=== PATIENT | male | born 1985 | race Caucasian/White ===

== ENCOUNTER → 2022-01-16 11:27 | Outpatient (CLI) | payer OTHER, SELFPAY ==
--- NOTE | ~2022-01-16 | MR_ITS ---
EXAMINATION: MR lumbar spine wo con DATE: 01/16/2022 12:09 INDICATION: lbp enzo buttock pain xyrs, no trauma, no ca . TECHNIQUE: Magnetic resonance imaging (MRI) of the lumbar spine was performed without intravenous con trast. Sequences included sagittal T2-weighted FSE, sagittal T2-weighted FS FSE, sagittal T1-weighted FSE, and axial T2-weighted FSE. COMPARISON: None FINDINGS: The last fully formed and hydrated disc is designated L5-S1. The marrow signal is benign an d homogenous. Conus terminates at L1-2. Disc height loss and dehydration at L4-5. The following disc levels are specifically discussed: T12-L1: Mild diffuse bulge with a 2 mm right paracentral protrusion. There is mild facet joint osteoa rthritis. There is no neural foraminal stenosis. There is no central canal stenosis. L1-L2: Mild diffuse bulge with a 3 mm right subarticular protrusion. There is moderate facet joint os teoarthritis. There is no neural foraminal stenosis. There is no central canal stenosis. L2-L3: The disc does not extend beyond the endplate margin. There is moderate facet joint osteoarthri tis. There is no neural foraminal stenosis. There is no central canal stenosis. L3-L4: The disc does not extend beyond the endplate margin. There is moderate facet joint osteoarthri tis. There is no neural foraminal stenosis. There is no central canal stenosis. L4-L5: Moderate diffuse bulge with a 5 mm left subarticular extrusion. There is moderate facet joint osteoarthritis. There is mild left inferior neural foraminal stenosis. There is mild central canal st enosis. L5-S1: Mild diffuse bulge. There is moderate facet joint osteoarthritis. There is no neural foraminal stenosis. There is no central canal stenosis. IMPRESSION: 1. Mild central canal stenosis and left inferior neural foraminal narrowing at L4-5, caused by modera te degenerative disc disease and a 5 mm left subarticular extrusion. 2. Small 2-3 mm disc protrusions at T12-L1 and L1-L2, without significant central canal or neural for aminal narrowing. 3. Moderate multilevel facet arthropathy. Reviewed, dictated and finalized at location K. IMPRESSION: 1. Mild central canal stenosis and left inferior neural foraminal narrowing at L4-5, caused by moderate degenerative disc disease and a 5 mm left subarticular extrusion. 2. Small 2-3 mm disc protrusions at T12-L1 and L1-L2, without significant centr al canal or neural foraminal narrowing. 3. Moderate multilevel facet arthropathy.
== END ==
PROVIDERS: PCP Family Medicine Sports Medicine
DX: M51.25 Other intervertebral disc displacement, thoracolumbar region (principal); M51.26 Other intervertebral disc displacement, lumbar region
CPT/HCPCS: 72148

== ENCOUNTER 2023-09-29 10:40 | Outpatient (CLI) | payer OTHER, SELFPAY ==
--- NOTE | ~2023-09-29 | MR_ITS ---
MRI of the lumbar spine Clinical History: Back pain Technique: Axial T2-weighted images, and sagittal T1-weighted, T2-weighted, and T2 fat-sat images wer e acquired. Findings: There is no fracture or subluxation of the lumbar spine. Vertebral bodies maintain normal h eight and line. No suspicious bone marrow signal abnormality seen. At L1-L2, there is mild loss of disc height with minimal disc bulge and mild facet arthropathy. No ce ntral canal stenosis or neural foraminal narrowing. At L2-L3 and L3-L4, there is no disc bulge or herniation. There is moderate facet arthropathy results . No spinal canal stenosis or neural foraminal narrowing at these levels. At L4-L5, there is mild diffuse disc bulge with mild facet arthropathy. No central canal stenosis. Th ere is probable minimal left neural foraminal narrowing. Right neural foramen preserved. At L5-S1, there is no disc bulge or herniation. There is minimal facet joint degenerative change. No spinal canal stenosis. There is minimal left neural foraminal narrowing. Right neural foramen preserv ed. Paravertebral soft tissues are unremarkable. Impression: Minimal degenerative spondylosis, as above. Reviewed, dictated and finalized at location . Impression: Minimal degenerative spondylosis, as above.
== END 2023-09-29 10:41 ==
PROVIDERS: PCP Family Medicine Sports Medicine; Visit Provider Family Medicine Sports Medicine
DX: M54.50 Low back pain, unspecified (principal); G89.29 Other chronic pain
CPT/HCPCS: 72148

== ENCOUNTER 2025-03-09 14:48 | Emergency (ER) | payer OTHER, SELFPAY ==
--- NOTE | 2025-03-09 14:51 | ED.BACK ---
HPI - Back Pain/Injury General Chief Complaint: Back Pain/Injury Stated Complaint: L sided back pain Time Seen by Provider: 03/09/25 14:49 Source: patient Mode of arrival: ambulatory Limitations: no limitations History of Present Illness HPI Narrative: Edin is a 39-year-old male patient presenting to the clinic today with complaints of left-sided flank pain since last night. 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 States he grabbed at their mattress-that was quite heavy and through it onto a cart. Did not feel any pain at this time but started to feel pain over the left flank area a few hours later. Took 1200 mg of ibuprofen and applied ice to his back this morning. States his pain is currently a 5/10 with movement and a 2/10 at rest. Pain is piching type pain with movement. Denies any saddle anesthesia or loss of bowel or bladder. History kidney stones in the past. No fevers, chills, body aches. Denies any blood in his urine. Related Data Home Medications ?Medication ?Instructions ?Recorded ?Confirmed ?Last Taken ?Type losartan 50 mg tablet mg 03/09/25 Unknown History Allergies Allergy/AdvReac Type Severity Reaction Status Date / Time No Known Allergies Allergy Verified 03/09/25 14:58 Review of Systems Review of Systems: Pertinent positives per HPI. Patient denies any fever, chills, rash, headache, visual changes, dizziness, cough, runny nose, sore throat, shortness of breath, chest pain, palpitations, nausea, vomiting, diarrhea, constipation, abdominal pain, or any urinary issues. PMFSH Comments At the time of my signature, I reviewed and agree with the nursing past medical, surgical, social, and family history. There is no relevant family history pertinent to the patient complaint. Exam Narrative: General: Well-developed, well nourished, in no apparent distress Head: Normocephalic, atraumatic. Cardio: Regular rate and rhythm, s1 and s2 normal, no murmur appreciated. Resp: Clear to auscultation bilaterally, no rhonchi, rales, wheezing or rubs. Musculoskeletal: No deformity, tender to palpation over the left flank, pinching pain worse with movement-twisting and bending, grossly normal range of motion, muscle strength strong and equal in BLE. SLT positive had approximately 30?, patellar reflexes 2/4 bilaterally, negative foot drop, normal gait and station Course Course Emergency Course: Portions of this record may have been created with voice recognition software. Level of Care: Express Care Visit Vital Signs Vital signs: Vital Signs Temperature 36.2 C L 03/09/25 14:57 Pulse Rate 69 03/09/25 14:57 Respiratory Rate 18 03/09/25 14:57 Blood Pressure 135/74 03/09/25 14:57 Pulse Oximetry 99 03/09/25 14:57 Oxygen Delivery Room Air 03/09/25 14:57 Temperature 36.2 C L 03/09/25 14:57 Pulse Rate 69 03/09/25 14:57 Respiratory Rate 18 03/09/25 14:57 Blood Pressure 135/74 03/09/25 14:57 Pulse Oximetry 99 03/09/25 14:57 Oxygen Delivery Room Air 03/09/25 14:57 Vital signs reviewed MDM - Back Pain/Injury MDM Narrative Medical decision making narrative: At the time of visit patient is resting comfortably on the exam table. Patient appears to be nontoxic. Complaints of left-sided flank pain since last night. 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 States he grabbed at their mattress-that was quite heavy and through it onto a cart. Did not feel any pain at this time but started to feel pain over the left flank area a few hours later. Took 1200 mg of ibuprofen and applied ice to his back this morning. States his pain is currently a 5/10 with movement and a 2/10 at rest. Pain is piching type pain with movement. Denies any saddle anesthesia or loss of bowel or bladder. History kidney stones in the past. No fevers, chills, body aches. Denies any blood in his urine. On exam tender to palpation over the left flank, pinching pain worse with movement-twisting and bending, grossly normal range of motion, muscle strength strong and equal in BLE. SLT positive had approximately 30?, patellar reflexes 2/4 bilaterally, negative foot drop, normal gait and station Urinalysis dip ordered. Labs: UA dip performed and was negative for any sign of infection or blood. Plan: I suspect patient has abdominal wall muscular strain/left acute flank pain. Prescription for naproxen and Flexeril was sent to the pharmacy. Sedation precautions were reviewed. Work note was given. Supportive measures were discussed with the patient and they voiced understanding discharge instructions and agrees to treatment plan. Return precautions reviewed Differential Diagnosis Differential diagnosis: Likely lumbar radiculopathy, sciatica, strain of lumbar region, renal colic, pyelonephritis, thoracic back pain, AAA and discitis Lab Data Labs: Lab Results 03/09/25 Range/Units 15:25 POC Urine Color Yellow POC Urine Clarity Clear POC Urine pH 6.0 POC Ur Specif [place] 1.030 POC Urine Protein Negative (Negative) POC Ur Glucose (UA) Negative (Negative) POC Urine Ketones Negative (Negative) POC Urine Blood Negative (Negative) POC Urine Nitrite Negative (Negative) POC Urine Bilirubin Negative (Negative) POC Urine Urobilinogen 0.2 POC U Leukocyte Esteras Negative (Negative) Discharge Plan Discharge Clinical Impression: Muscular abdominal pain in left flank Patient Disposition: Home Condition: Stable Instructions: Antibiotic Form, Flank Pain (ED) Additional Instructions: Urinalysis is negative for any sign of blood or infection. Take any prescription medication only as prescribed-naproxen and cyclobenzaprine Be mindful of sedation precautions given to you if taking a muscle relaxer. May use heat or ice to the affected area Consider massage or chiropractor adjustment if this was discussed with provider May use blue emu, lidocaine patches, or asper cream to affected area- do not apply heat or ice directly over cream- can cause burn. Complete appropriate back stretching exercises. Follow up with your PCP in 3-5 days if symptom persist. Patient Language: Belarusian Prescriptions: New naproxen 500 mg tablet 500 mg PO BID PRN (Reason: pain) 7 Days Qty: 14 0RF cyclobenzaprine 10 mg tablet 10 mg PO Q8H PRN (Reason: muscle spasm) 7 Days Qty: 21 0RF No Action losartan 50 mg tablet Follow-up/Referrals: UNKNOWN,DOCTOR [Primary Care Provider] Stand Alone Forms: Work/School Release IP Time of Disposition: 15:27 Quality NIHSS Nursing Documentation ED NIHSS nursing documentation: reviewed/agree
--- OUTSIDE RECORDS SUMMARY | 2025-03-09 14:51 | XMS_ITS | Encounter Summary ---
Author Organization [facility] Address [address] [place] [id number] Care Team Providers Care Rn Diabetes Educator Name Role Phone Derick Peña MD Primary Care Provider Encounter Details Date Type Department Care Team (Latest Contact Info) Description 04/05/[address] [facility] [address] [place], [place] [phone] Derick Peña MD [address] [address] FMLA Paperwork and Restrictions Social History Tobacco Use Types Packs/Day Years Used Date Smoking Tobacco: Never Passive Smoke Exposure: Current Smokeless Tobacco: Never Alcohol Use Standard Drinks/Week Comments Not Currently 0 (1 standard drink = 0.6 oz pur e alcohol) Rarely AUDIT-C Answer Date Recorded Frequency of Alcohol Consumption Never 07/20/2018 Average Number of Drinks Not on file 019 Frequency of Binge Drinking Not on file 06/28 PHQ-2 Answer Date Recorded Patient Health Questionnaire-2 Score 0 03/21/2023 Sex and Gender Information Value Date Recorded Sex Assigned at Male 07/24/2024 5:48 PM ELECTRIC STOP INSTALLER Legal Sex Male 5:17 PM CDT Gender Identity Male 08/02/2018 4:09 PM ELECTRIC STOP INSTALLER Sexual Orientation Straight 08/02/2018 4: 09 PM ELECTRIC STOP INSTALLER documented as of this encounter Plan of Treatment Not on file documented as of this encounter Visit Diagnoses Not on filedocumented in this encounter Additional Health Concerns Infection Onset Date Last Indicated Resolved Time COVID-19 Rule Out 06/11/2023 06/11/2023 06/11/2023 8:59 AM ELECTRIC STOP INSTALLER Influenza - Seasonal 06/11/2023 06/11/2023 023 12:32 AM ELECTRIC STOP INSTALLER COVID-19 Rule Out 03/26/2024 03/26/2024 03/26/2024 3:14 PM CDT COVID-19 Confirmed 03/26/2024 03/26/2024 12:33 AM CDT COVID-19 Rule Out 02/23/2025 02/23/2025 02/23/2025 12:43 PM CDT Assessment Noted Time PHQ-9 Depression Total Score: 0 07/27/19 22 1:51 PM ELECTRIC STOP INSTALLER documented as of this encounter Care Teams Rn Diabetes Educator Relationship Specialty Start Date End Date Derick Peña MD [address] [address] PCP - General FAMILY PRACTICE 07/20/18 documented as of this encounter
--- OUTSIDE RECORDS SUMMARY | 2025-03-09 14:51 | XMS_ITS | Clinical Summary ---
Author Organization [facility] Address [address] [place] [address] Phone Care Team Providers Care Solar Sales Assessor Name Role Phone Provider, None Primary Care Provider Unavailabl e Allergies No known active allergies Medications HYDROcodone-acet aminophen (NORCO) 7.5-325 MG Tablet 1 Tablet every 6 hours as needed. Active ketorolac (TORADOL) 10 MG Tablet Take 10 mg by mouth every 8 hours as needed. 08/01/2024 Active losartan (COZAAR) 50 MG Tablet Take 50 mg by mouth daily. Active Active Problems Problem Noted Date Diagnosed Date Closed displaced fracture of neck of right fifth metacarpal bone 09/09/2024 Right hand pain 09/09/2024 Resolved Problems Problem Noted Date Diagnosed Date Resolved Date Primary hypertension 03/05/2024 025 Class 1 obesity due to exces s calories without serious comorbidity with body mass index (BMI) of 32.0 to 32.9 in adult 02/28/202409/2024 Lumbar degenerative disc disease 12/27/2023 08/28/2024 Fay's esophagus determined by endoscopy 03/19/2022 08/28/2024 Gastritis 03/19/2022 08/28/2024 Terminal ileitis 03/19/2022 08/28/2024 Immunizations Immunization Administration Dates Next Due DTP Vaccine 03/27/1992, 9,06/12/1987,1986,01/14/1987 Hepatitis B Vaccine, Pediatric/adolescent 11/12/1996,06/07/1996,05/03/1996 Influenza Vaccine, Quadrivalent, PF 04/02/2018,1 06/29/2016 Influenza Vaccine,unspecifie d Formulation 04/03/2018,04/12/2015 Influenza,Split Virus,Trivalent,Injectable,PF 04/11/2015 MMR Vaccine 03/27/1992,02/15/1989 OPV 03/27/1992, 9,06/12/1987,1986,01/14/1987 Oral Polio Vaccine, Unspecif ied Formulation 03/27/1992,02/15/1989,06/12/1987,1986,01/14/1987 TD VACCINE 03/29/2002 TDAP Vaccine 04/29/2017 Social History Tobacco Use Types Packs/Day Years Used Date Smoking Tobacco: Never Smokeless Tobacco: Never Tobacco Cessation:Counseling Given: Not Answered Alcohol Use Standard Drinks/Week Comments Not Currently 0 (1 standard drink = 0.6 oz pur e alcohol) [facility] [employer] Answer Date Recorded In the past 12 months has Personal Factory, gas, oil, or water [employer] threatened to shut off services in your home? No 09/25/2024 Social Connection and Isolation Panel Answer Date Recorded In a typical week, how many times do you talk on the phone with family, friends, or neighbors? More than three times a week 09/25/2024 How often do you get togethe r with friends or relatives? Never 09/25/2024 How often do you attend [facility] ch or mosque services? Never 09/25/2024 Do you belong to any clubs o r organizations such as religion groups, unions, fraternal or athletic groups, or school groups? No 09/25/2024 How often do you attend meet ings of the clubs or organizations you belong to? Never 09/25/2024 Are you , , di vorced, , never , or living with a partner? 09/25/2024 AUDIT-C Answer Date Recorded Q1: How often do you have a drink containing alc ohol? Monthly or less 09/25/2024 Q2: How many drinks containi ng alcohol do you have on a typical day when you are drinking? 1 or 2 09/25/2024 Q3: How often do you have si x or more drinks on one occasion? Less than monthly 09/25/2024 Overall Financial Resource Strain (CARDIA) Answe r Date Recorded How hard is it for you to pa y for the very basics like food, housing, medical care, and heating? Not hard at all 09/25/2024 [employer] [place] [facility] Occupat ional Health - Occupational Stress Questionnaire Answer Date Recorded Do you feel stress - tense, restless, nervous, or anxious, or unable to sleep at night because your mind is troubled all the time - these days? Not at all 09/25/2024 Exercise Vital Sign Answer Date Recorde d On average, how many days pe r week do you engage in moderate to strenuous exercise (like a brisk walk)? 1 day 09/25/2024 On average, how many minutes do you engage in exercise at this level? 60 min 09/25/2024 Hunger Vital Sign Answer Date Recorded Within the past 12 months, y ou worried that your food would run out before you got the money to buy more. Never true 09/26/19 Within the past 12 months, t he food you bought just didn't last and you didn't have money to get more. Never true 09/25/2024 PRAPARE - Transportation Answer Date Re corded In the past 12 months, has l ack of transportation kept you from medical appointments or from getting medications? No 06/2024 In the past 12 months, has l ack of transportation kept you from meetings, work, or from getting things needed for daily living? No 09/25/2024 Housing Stability Vital Sign Answer Tone e Recorded In the last 12 months, was t here a time when you were not able to pay the mortgage or rent on time? No 09/25/2024 Number of Times Moved in the Last Year Not on fi le 09/25/2024 At any time in the past 12 m [facility], were you homeless or living in a snf (including now)? No 09/25/2024 Sex and Gender Information Value Date Recorded Sex Assigned at Male 08/28/2024 12:20 PM AUTOMATIC EMBROIDERY MACHINE TENDER Legal Sex Male 12:18 PM AUTOMATIC EMBROIDERY MACHINE TENDER Gender Identity Male 08/28/2024 12:20 PM AUTOMATIC EMBROIDERY MACHINE TENDER Sexual Orientation Not on file Last Filed Vital Signs Vital Sign Reading Time Taken Comments Blood Pressure 115/73 09/25/2024 10:45 AM CDT Pulse 63 09/25/2024 10:45 AM CDT Temperature 36.7 C (98 F) 09/25/2024 10:45 AM CDT Respiratory Rate - - Oxygen Saturation 98% 09/25/2024 10: 45 AM CDT Inhaled Oxygen Concentration - - Weight 107.6 kg (237 lb 3.2 oz) 025 10:45 AM CDT Height 177.8 cm (5' 10) 09/25/2024 10: 45 AM CDT Body Mass Index 34.03 09/25/2024 10:45 AM CDT Plan of Treatment Health Maintenance Due Date Last Done Comments Hepatitis C Virus (HCV) Screening 1986 Human Papillomavirus (HPV) Immunization (1 - 3-dose SCDM series) 2013 Influenza Immunization (#1) 02/25/202501/2018, 04/02/2018, 04/29/2017, Additional history exists SARS-COV-2 Immunization ( season) 2025 DTaP/Tdap/Td Immunization (7 - Td or Tdap) 04/29/2027 04/29/2017, 03/29/2002, 03/27/1992, Additional history exists Respiratory Syncytial Virus (RSV) Immunization (Adult) (1 - 1-dose 75+ series) 2061 Hepatitis B Immunization Completed 997, 06/07/1996, 05/03/1996 TdaP Immunization Discontinued 04/29/2017 Meningococcal Immunization (ACWY) Aged Out No longer eligible based on patient's age to complete this topic Pneumococcal Immunization Combined Aged Out No longer eligible based on patient's age to complete this topic Rotavirus Immunization Aged Out No lo nger eligible based on patient's age to complete this topic Insurance Care Teams Solar Sales Assessor Relationship Specialty Start Date End Date Provider, None KRISTI PCP - General 08/28/24
--- OUTSIDE RECORDS SUMMARY | 2025-03-09 14:51 | XMS_ITS | Clinical Summary ---
Author Organization [facility] Address [facility] [place] [address] Care Team Providers Care Aircraft Cabin Cleaner Name Role Phone Derick Peña MD Primary Care Provider [phone] Allergies No known active allergies Medications ondansetron (ZOFRAN-ODT) 4 MG disintegrating tablet Take 1 tablet (4 mg total) by mouth every 8 (eight) hours as needed for Nausea. 20 tablet 07/24/19 Active Additional Information Patient not taking.Reported on 02/23/2025 methocarbamol (ROBAXIN) 750 MG Tab Take 1 tablet (750 mg total) by mouth every 4 (four) hours. 180 tablet 07/24/19 Active Additional Information Patient not taking.Reported on 02/23/2025 HYDROcodone-acetam inophen (NORCO) 7.5-325 MG tabletIndications: Acute Pain < 7 Day Supply Take 1 tablet by mouth every 6 (six) hours as needed for Pain. Indications: Acute Pain < 7 Day Supply 10 tablet 08/16/19 Active Additional Information Patient not taking.Reported on 02/23/2025 losartan (COZAAR) 50 MG tabletIndications: Primary hypertension TAKE ONE TABLET BY MOUTH DAILY 90 tablet 1 10/23/19 Active Active Problems Problem Noted Date Diagnosed Date Acute non-recurrent maxillary sinusitis 01/30/20 Overview (01/29/2025): - current symptoms suspicious for acute sinusits - cannot exclude atypical migraine headache - START augmentin BID x 7 days - encouraged sinus rinses Assessment & Plan (01/29/2025 10:15 AM CDT): - current symptoms suspicious for acute sinusits - cannot exclude atypical migraine headache - START augmentin BID x 7 days - encouraged sinus rinses Primary hypertension 03/05/2024 Class 1 obesity due to exces s calories without serious comorbidity with body mass index (BMI) of 32.0 to 32.9 in adult 02/28/2024 Lumbar degenerative disc disease 12/27/2023 Terminal ileitis ([facility]) 03/19/2022 Gastritis 03/19/2022 Fay's esophagus determined by endoscopy 02/26 Resolved Problems Problem Noted Date Diagnosed Date Resolved Date Influenza A 06/11/2023 02/28/2024 No known health problems 08/26/201504/2020 Encounters Date Type Department Care Team Description 02/23/2025 11:00 AM CDT Office Visit [address] [place] [address] Katrin Koch V, [facility]- Sore Throat ( Sore throat for 2 days. Hurts when swallowing. ); Nausea (Pt sick after eating lunch at work 3 days ago. ); Diarrhea ( X3 days) 02/23/2025 Travel 01/30/[address] [address] Brennen Da Silva, DO Work Excuse 01/30/2025 MyChart Message Enc [address] [address] Brennen Da Silva, DO My headache situation. 01/29/2025 10:00 AM CDT Office Visit [address] [address] Brennen Da Silva, DO Headache 01/29/2025 Travel from Last 3 Months Immunizations Immunization Administration Dates Next Due Dtp 03/27/1992, 9,06/12/1987,03/20/1987,1986 Hepatitis B Pediatric 11/12/1996,06/07/1996,12/1995 Influenza (Generic) 04/12/2015 Influenza Adult (Generic) 04/03/2018,04/29/2017, 04/11/2015 MMR 03/27/1992,02/15/1989 Opv 03/27/1992, 9,06/12/1987,03/20/1987,1986 Td 03/29/2002 Tdap (Generic) 04/29/2017 Family History Medical History Relation Comments Heart Disease Father Hypertension Father Cancer Maternal Aunt Cancer Maternal Grandfather Cancer Maternal Grandmother Cancer Mother Stomach/colon Relation Status Comments Father Maternal Aunt Maternal Grandfather Maternal Grandmother Mother Social History Tobacco Use Types Packs/Day Years Used Date Smoking Tobacco: Never Passive Smoke Exposure: Current Smokeless Tobacco: Never Tobacco Cessation:Counseling Given: No Alcohol Use Standard Drinks/Week Comments Yes 0 (1 standard drink = 0.6 oz pur e alcohol) Rarely AUDIT-C Answer Date Recorded Frequency of Alcohol Consumption Never 07/20/2018 Average Number of Drinks Not on file 019 Frequency of Binge Drinking Not on file 06/28 PHQ-2 Answer Date Recorded Patient Health Questionnaire-2 Score 0 02/23/2025 Sex and Gender Information Value Date Recorded Sex Assigned at Male 07/24/2024 5:48 PM DIMMER BOARD OPERATOR Legal Sex Male 5:17 PM CDT Gender Identity Male 08/02/2018 4:09 PM DIMMER BOARD OPERATOR Sexual Orientation Straight 08/02/2018 4: 09 PM DIMMER BOARD OPERATOR Last Filed Vital Signs Vital Sign Reading Time Taken Comments Blood Pressure 136/88 02/23/2025 10:54 AM CDT Pulse 91 02/23/2025 10:54 AM CDT Temperature 37.1 C (98.7 F) 02/23/2025 10:54 AM CDT Respiratory Rate 14 02/23/2025 10:54 AM CDT Oxygen Saturation 95% 02/23/2025 10:54 AM CDT Inhaled Oxygen Concentration - - Weight 104 kg (229 lb 4 oz) 02/23/2025 10:54 AM CDT Height 180.3 cm (5' 11) 02/23/2025 10:54 AM CDT Body Mass Index 31.97 02/23/2025 10:54 AM CDT Plan of Treatment Health Maintenance Due Date Last Done Comments Annual Physical 1989 Hepatitis C 2004 HPV Vaccines (1 - 3-dose SCDM series) 2013 COVID-19 Vaccine ( - season) 2025 EGD-Fay's Surveillance 03/19/2025 03/19/2022 DTaP, Tdap and Td Vaccines (3 - Td or Tdap) 04/29/2027 04/29/2017, 03/29/2002, 03/27/1992, Additional history exists Hepatitis B Vaccines Completed 11/12/1996, 06/07/1996, 05/03/1996 PHQ-2 (Physician [place]) Completed 02/23/2025 Meningococcal B Vaccine Aged Out No l onger eligible based on patient's age to complete this topic Meningococcal Vaccine Aged Out No merlyn wolf eligible based on patient's age to complete this topic Pneumococcal Vaccine: Pediatrics (0 to 5 Years) and At-Risk Patients (6 to 49 Years) Aged Out No longer eligible based on patient's age to complete this topic RSV Immunizations Under 20 Months Aged Out No longer eligible based on patient's age to complete this topic Procedures Procedure Name Priority Date/Time Associated Diagnosis Comments CORONAVIRUS (COVID-19) ANTIGEN Today 02/23/2025 12:42 PM CDT Viral upper respiratory illness INFLUENZA A & B Routine 02/23/2025 Acute sore throat Viral upper respiratory illness STREP A RAPID Routine 02/23/2025 Acute sore throat EGD Routine 03/19/2022 7:17 AM CDT from Last 3 Months or Most Recently Relevant to Health Maintenance Results * CORONAVIRUS (COVID-19) ANTIGEN (02/23/2025 12:42 PM CDT) CORONAVIRUS ANTIGEN IA NEGATIVE NEGATIVE [facility] ([address])[place] Internal Control: [facility] NASAL NASAL STRUCTURE / Unknown 02/23/2025 12:42 PM CDT us Katrin Koch V, AIR BRAKE OPERATOR- MICROBIOLOGY - GENERAL ORDERABLES Final Result [facility] [place] [address], [place] [phone] * INFLUENZA A & B (02/23/2025) Pathologist [facility] [place] INFLU[facility]ZA [facility] NE[facility]IVE [facility] ([address]), [place] INFLUENZA B NEGATIVE NEGATIVE [facility] ([address]), [place] Internal Control: [facility] ([address]), [place] NASAL STRUCTURE / Unknown 02/23/2025 ISABELLA Flynn-BOBBY MICROBIOLOGY - GENERAL ORDERABLES Final Result Performing Organization Address City/[facility]/ZIP Co de Phone Number [facility] ([address]), [place] [address], [place] [phone] * STREP A RAPID (02/23/2025) Pathologist [facility] [place] RAPID STREP TEST NEGATIVE NEGATIVE [facility] ([address]), [place] Internal Control: [facility] ([address]), [place] STRUCTURE OF ANTERIOR PORTION OF NECK / Unknown 02/23/2025 us Katrin Koch V, AIR BRAKE OPERATOR-BOBBY MICROBIOLOGY - GENERAL ORDERABLES Final Result Performing Organization Address City/[facility] Co de Phone Number [facility] ([address]), [place] [address], [place] [phone] from Last 3 Months Insurance [employer] [facility] Care Teams Aircraft Cabin Cleaner Relationship Specialty Start Date End Date Derick Peña MD [address] [facility] [address] [place] [address] PCP - General FAMILY PRACTICE 07/20/18
--- OUTSIDE RECORDS SUMMARY | 2025-03-09 14:51 | XMS_ITS | Encounter Summary ---
Author Organization [facility] Address [address] [place] [address] Care Team Providers Care Feeder Driver Name Role Phone Derick Peña MD Primary Care Provider Encounter Details Date Type Department Care Team (Late st Contact Info) Description 02/16/2022 [employer] Message [facility] [address] [place], [place] [phone] Derick Peña MD [address] [facility] [address] [place] [address] Referral Social History Tobacco Use Types Packs/Day Years Used Date Smoking Tobacco: Never Smokeless Tobacco: Never Alcohol Use Standard Drinks/Week Comments No 0 (1 standard drink = 0.6 oz pur e alcohol) AUDIT-C Answer Date Recorded Frequency of Alcohol Consumption Never 07/20/2018 Average Number of Drinks Not on file 019 Frequency of Binge Drinking Not on file 06/28 PHQ-2 Answer Date Recorded PHQ-2 Score - If the patient scores above 3, please move on to questions 3-9 0 10/15/2021 Sex and Gender Information Value Date Recorded Sex Assigned at Male 07/24/2024 5:48 PM INSPECTOR SHELLS Legal Sex Male 5:17 PM CDT Gender Identity Male 08/02/2018 4:09 PM INSPECTOR SHELLS Sexual Orientation Straight 08/02/2018 4: 09 PM INSPECTOR SHELLS COVID-19 Exposure Response Date Recorded In the last 10 days, have yo u been in contact with someone who was confirmed or suspected to have Coronavirus/COVID-19? No / Unsure 02/10/2022 2:27 PM CDT documented as of this encounter Plan of Treatment Not on file documented as of this encounter Visit Diagnoses Not on filedocumented in this encounter Additional Health Concerns Infection Onset Date Last Indicated Resolved Time COVID-19 Rule Out 06/11/2023 06/11/2023 06/11/2023 8:59 AM INSPECTOR SHELLS Influenza - Seasonal 06/11/2023 06/11/2023 023 12:32 AM INSPECTOR SHELLS COVID-19 Rule Out 03/26/2024 03/26/2024 03/26/2024 3:14 PM CDT COVID-19 Confirmed 03/26/2024 03/26/2024 12:33 AM CDT COVID-19 Rule Out 02/23/2025 02/23/2025 02/23/2025 12:43 PM CDT Assessment Noted Time PHQ-9 Depression Total Score: 0 07/27/19 22 1:51 PM INSPECTOR SHELLS documented as of this encounter Care Teams Feeder Driver Relationship Specialty Start Date End Date Derick Peña MD [address] [place] [address] PCP - General FAMILY PRACTICE 07/20/18 documented as of this encounter
--- OUTSIDE RECORDS SUMMARY | 2025-03-09 14:51 | XMS_ITS | Encounter Summary ---
Author Organization [facility] Address [address] [place] [id number] Care Team Providers Care Plate Finisher Name Role Phone Derick Peña MD Primary Care Provider [phone] Encounter Details Date Type Department Care Team (Late st Contact Info) Description 02/28/2024 Cro[place] Message [address] [id number] [facility], [facility] Provider results Social History Tobacco Use Types Packs/Day Years Used Date Smoking Tobacco: Never Passive Smoke Exposure: Current Smokeless Tobacco: Never Alcohol Use Standard Drinks/Week Comments Yes 0 (1 standard drink = 0.6 oz pur e alcohol) Rarely AUDIT-C Answer Date Recorded Frequency of Alcohol Consumption Never 07/20/2018 Average Number of Drinks Not on file 019 Frequency of Binge Drinking Not on file 06/28 PHQ-2 Answer Date Recorded Patient Health Questionnaire-2 Score 0 09/09/2023 Sex and Gender Information Value Date Recorded Sex Assigned at Male 07/24/2024 5:48 PM PRODUCTION INSPECTOR Legal Sex Male 5:17 PM CDT Gender Identity Male 08/02/2018 4:09 PM PRODUCTION INSPECTOR Sexual Orientation Straight 08/02/2018 4: 09 PM PRODUCTION INSPECTOR documented as of this encounter Plan of Treatment Not on file documented as of this encounter Visit Diagnoses Not on filedocumented in this encounter Additional Health Concerns Infection Onset Date Last Indicated Resolved Time COVID-19 Rule Out 03/26/2024 03/26/2024 03/26/2024 3:14 PM CDT COVID-19 Confirmed 03/26/2024 03/26/2024 12:33 AM CDT COVID-19 Rule Out 02/23/2025 02/23/2025 02/23/2025 12:43 PM CDT Assessment Noted Time PHQ-9 Depression Total Score: 0 07/27/19 22 1:51 PM PRODUCTION INSPECTOR documented as of this encounter Care Teams Plate Finisher Relationship Specialty Start Date End Date Derick Peña MD [id number] [address] PCP - General FAMILY PRACTICE 07/20/18 documented as of this encounter
[2025-03-09 14:57] VITALS: BP 135/74; PULSE 69; RESP 18; TEMP 36.2; O2SAT 99
[2025-03-09 15:27] LABS: EDUAAPPEAR Clear; EDUABILI Negative (Negative); EDUABLOOD Negative (Negative); EDUACOLOR1 Yellow; EDUAGLUCOSE Negative (Negative); EDUAKETONE Negative (Negative); EDUALEUKO Negative (Negative); EDUANITRATE Negative (Negative); EDUAPH 6.0; EDUAPROTEIN Negative (Negative); EDUASPGRAVITY 1.030; EDUAUROBILI 0.2
== END 2025-03-09 15:30 | disposition home or self-care (01) ==
PROVIDERS: Emergency Provider Nurse Practitioner Family
DX: R10.9 Unspecified abdominal pain (principal); Z87.442 Personal history of urinary calculi
CPT/HCPCS: 81003; 99203; G0463